=== PATIENT | female | born 1995 | race Caucasian/White ===

== ENCOUNTER 2017-08-21 13:06 | Emergency (ER) | payer SELFPAY | END 2017-08-21 13:41 | disposition left against medical advice (07) | LOC: ER 13:06 | DX: O26.891 Other specified pregnancy related conditions, first trimester (principal); Z53.21 Procedure and treatment not carried out due to patient leaving prior to being seen by health care provider; Z3A.00 Weeks of gestation of pregnancy not specified ==

== ENCOUNTER 2017-12-26 16:55 | Day surgery (SDC) | payer OTHER ==
[~2017-12-26] VITALS: Ht 175.3 cm; Wt 63.5 kg
[2017-12-26] MEDS ORDERED: SODIUM CHLORIDE 0.9% 1,000 ML IVB ONE (17:13)
[2017-12-26] MEDS ORDERED: MORPHINE SULFATE 4 MG/ML SYR/VIAL IV ONE ×2 (17:15→20:15)
[2017-12-26] MEDS ORDERED: ONDANSETRON HCL 4 MG/2 ML VIAL IV ONE (17:15)
[2017-12-26 19:02] LABS: Basophils # (auto) 0 uL; Basophils % (auto) 0.3 % (0.0-2.0); Eosinophils # (auto) 0.1 uL; Eosinophils % (auto) 0.7 % (0.0-7.0); Hematocrit 38.2 % (36.0-46.0); Lymphocytes # (auto) 1.4 uL; Lymphocytes % (auto) 11.8 % (10.0-50.0); Mean Corpuscular Hemoglobin 31.1 pg (28.0-32.0); Mean Corpuscular Hgb Conc. 34.1 g/dL (32.0-36.0); Monocytes # (auto) 0.9 uL; Monocytes % (auto) 7.5 % (0.0-12.0); Neutrophils # (auto) 9.1 uL; Neutrophils % (auto) 79.7 % (37.0-80.0); Platelet Count (auto) 166 10^3/uL (140-450); Red Blood Cells 4.19 10^6/uL (4.0-5.20); Red Cell Distribution Width 12.5 % (11.8-14.3); White Blood Cell 11.5 10^3/uL (4.4-10.8)
[2017-12-26 19:19] LABS: Albumin 3.5 g/dL (3.4-5.0); BUN/Creatinine Ratio 10.8; Calcium 7.8 mg/dL (8.5-10.1); Potassium 3.4 mmol/L (3.5-5.1)
[2017-12-26 19:22] LABS: Bilirubin, Total 0.3 mg/dL (0.2-1.0); Total Protein 6.7 g/dL (6.4-8.2)
[2017-12-26] MEDS ORDERED: LACT. RINGERS/OXYTOCIN 20UNITS 1,000 ML IV ONE ×2 (20:15→20:30)
[2017-12-26] MEDS ORDERED: SUCCINYLCHOLINE CHLORIDE 20 MG/ML 10ML VIAL IV ONE (20:45)
[2017-12-26] MEDS ORDERED: ONDANSETRON HCL 4 MG/2 ML VIAL ONE (20:58)
[2017-12-26] MEDS ORDERED: KETOROLAC TROMETH 60MG/2ML VIAL IM ONE (20:58)
[2017-12-26] MEDS ORDERED: fentaNYL CITRATE 100 MCG/2 ML VL ONE (20:58)
[2017-12-26] MEDS ORDERED: MIDAZOLAM HCL 1MG/1ML-2 ML VIAL ONE (20:58)
[2017-12-26] MEDS ORDERED: SODIUM CHLORIDE LOCK 20 ML ONE (20:58)
[2017-12-26] MEDS ORDERED: PROPOFOL 10 MG/ML 20 ML IV ONE (20:58)
[2017-12-26] MEDS ORDERED: KETOROLAC TROMETH 30 MG/ML 1ML VIAL IV ONE (21:15)
[2017-12-26] MEDS ORDERED: METOCLOPRAMIDE HCL 5MG/ml INJ 2ml VIAL IV ONE (21:15)
[2017-12-26] MEDS ORDERED: fentaNYL CITRATE 100 MCG/2 ML VL IV ONE (21:15)
[2017-12-26] MEDS ORDERED: CLINDAMYCIN 600MG IV 50 ML IV ONE ×2 (21:20→21:30)
[2017-12-26 21:28] LABS: INR 1.05 (0.9-1.15); Partial Thromboplastin Time 27.1 sec (23.78-33.04); Prothrombin Time 11.2 sec (9.27-12.13)
[2017-12-26] MEDS ORDERED: RHO (D) IMMUNE GLOBULIN 300 MCG INJ IM PRN (21:45)
[2017-12-26 22:25] VITALS: BP 126/85
== END 2017-12-26 22:30 | disposition home or self-care (01) ==
LOC: EDBD 16:55 → ER 16:59 → SUR 17:00 → ER 21:06 → SUR 22:30
PROVIDERS: ATTEND Obstetrics & Gynecology
DX: O03.4 Incomplete spontaneous abortion without complication (principal); F10.99 Alcohol use, unspecified with unspecified alcohol-induced disorder; F17.210 Nicotine dependence, cigarettes, uncomplicated; Z3A.09 9 weeks gestation of pregnancy; Z88.5 Allergy status to narcotic agent; Z88.0 Allergy status to penicillin; Z91.040 Latex allergy status; Z88.8 Allergy status to other drugs, medicaments and biological substances
CPT/HCPCS: 36415; 59812; 76801; 80053; 84702; 85025; 85610; 85730; 86850; 86900; 86901; 88305; 88342; J0330; J1885; J2250; J2270; J2405; J2590; J2704; J3010; J3490; J7030